=== PATIENT | female | born 1990 | race African-American/Black ===

== ENCOUNTER 2020-12-11 18:09 | Emergency (ER) | payer MEDICAID ==
[~2020-12-11] VITALS: Ht 167.6 cm; Wt 55.0 kg
[2020-12-11 21:20] LABS: CHLORIDE 110 mEq/L (98-107)
[2020-12-11 21:27] LABS: HCG SCREEN NEGATIVE
[2020-12-11 21:29] LABS: HEMATOCRIT. 44.2 % (36.0-48.0); HEMOGLOBIN. 14.5 g/dL (12.0-16.0); MEAN CORPUSCULAR HEMOGLOBIN 29.9 pg (28.0-32.0); MEAN CORPUSCULAR VOLUME 91.6 fL (81.0-99.0); MEAN PLATELET VOLUME 9.4 fl (7.4-10.4); PLATELET 170 x1000/uL (130-400); RED BLOOD CELL COUNT 4.83 mill/uL (4.2-5.4); RED CELL DISTRIBUTION WIDTH 16.2 % (11.6-14.6)
[2020-12-11 21:52] LABS: ETHANOL BLOOD 489 mg/dL
[2020-12-11 22:01] LABS: PLATELET ESTIMATE NORMAL
[2020-12-11] MEDS ORDERED: KCL 20MEQ/100ML PREMIX 100 ML IV ONE (22:30)
[2020-12-11] MEDS ORDERED: IBUPROFEN 400MG TABLET PO ONE (23:15)
[2020-12-12] MEDS ORDERED: HALOPERIDOL LACTATE 5MG/ML VIAL IM ONE (01:45)
[2020-12-12] MEDS ORDERED: IBUPROFEN 400MG TABLET PO ONE (03:30)
[2020-12-12 07:30] VITALS: BP 116/79
== END 2020-12-12 09:04 | disposition home or self-care (01) ==
LOC: ER 18:09
DX: F10.129 Alcohol abuse with intoxication, unspecified (principal); Y90.8 Blood alcohol level of 240 mg/100 ml or more; E87.6 Hypokalemia
CPT/HCPCS: 70450; 71045; 76705; 80053; 80307; 80320; 84703; 85025; 93005; 96360; 96361; 96372; 99285; J1630; J3480; G0480

== ENCOUNTER 2021-07-17 12:51 | Inpatient (IN) | payer MEDICAID, OTHER ==
[~2021-07-17] VITALS: Ht 162.6 cm; Wt 67.8 kg
[2021-07-17 15:09] LABS: HEMATOCRIT. 39.5 % (36.0-48.0); HEMOGLOBIN. 12.7 g/dL (12.0-16.0); MEAN CORPUSCULAR HEMOGLOBIN 28.4 pg (28.0-32.0); MEAN PLATELET VOLUME 7.8 fl (7.4-10.4); PLATELET 288 x1000/uL (130-400); RED BLOOD CELL COUNT 4.49 mill/uL (4.2-5.4); RED CELL DISTRIBUTION WIDTH 14.1 % (11.6-14.6)
[2021-07-17 15:30] LABS: HCG SCREEN NEGATIVE
[2021-07-17 16:21] LABS: CHLORIDE 83 mEq/L (98-107)
[2021-07-17 16:26] LABS: ETHANOL BLOOD 109 mg/dL
[2021-07-17] MEDS ORDERED: KCL 20MEQ/100ML PREMIX 100 ML IV NR (17:15)
[2021-07-17] MEDS ORDERED: NALOXONE HCL 0.4MG/ML VIAL IV PRN (17:15)
[2021-07-17] MEDS ORDERED: HYDROCODONE/ACETAMINOPHEN 5/325MG TABLET PO NR (17:15)
[2021-07-17 20:27] LABS: CLARITY URINE CLEAR (CLEAR); COLOR URINE YELLOW (YELLOW); KETONES URINE 1+ (NEGATIVE); LEUKOCYTE ESTERASE URINE NEGATIVE (NEGATIVE); NITRITE URINE NEGATIVE (NEGATIVE); OCCULT BLOOD URINE 1+ (NEGATIVE); PH URINE 5.5 (4.5-8.0); PROTEIN URINE 1+ (NEGATIVE); SPECIFIC GRAVITY URINE 1.018 (1.005-1.030); UROBILINOGEN URINE 0.2 E.U./dL (0.2-1.0)
[2021-07-17] MEDS ORDERED: DEXTROSE 50% WATER 50ML SYRINGE IV NR (20:30)
[2021-07-17] MEDS ORDERED: MORPHINE SULFATE 2 MG/ML CPJ (NOT FOR IM USE) IV ONE (20:45)
[2021-07-17 20:47] LABS: *AMPHETAMINES SCREEN URINE NEGATIVE (NEGATIVE); *BARBITURATES SCREEN URINE NEGATIVE (NEGATIVE); *BENZODIAZEPINES SCREEN URINE NEGATIVE (NEGATIVE); *COCAINE SCREEN URINE NEGATIVE (NEGATIVE); CANNABINOID URINE SCREEN NEGATIVE (NEGATIVE); METHADONE URINE SCREEN NEGATIVE (NEGATIVE); OPIATES URINE SCREEN NEGATIVE (NEGATIVE); PHENCYCLIDINE URINE SCREEN NEGATIVE (NEGATIVE)
[2021-07-17 21:19] LABS: PLATELET ESTIMATE NORMAL
[2021-07-17] MEDS ORDERED: ONDANSETRON HCL 4MG/2ML INJ IV ONE (23:30)
[2021-07-18] MEDS: ACETAMINOPHEN 325MG TABLET PO PRN ×2 (02:40→09:09)
[2021-07-18 04:22] VITALS: BP 125/77
[2021-07-18] MEDS ORDERED: CLONIDINE 0.1MG TABLET PO PRN (04:45)
[2021-07-18] MEDS ORDERED: DOCUSATE SODIUM 100MG CAPSULE PO PRN (04:45)
[2021-07-18] MEDS ORDERED: MAGNESIUM/ALUMINUM HYDROXIDE/SIMETHICONE 30ML UDC PO PRN (04:45)
[2021-07-18] MEDS ORDERED: ACETAMINOPHEN 325MG TABLET PO PRN (04:45)
[2021-07-18 07:56] LABS: HEMATOCRIT. 37.2 % (36.0-48.0); MEAN CORPUSCULAR HEMOGLOBIN 28.1 pg (28.0-32.0); MEAN CORPUSCULAR VOLUME 87.2 fL (81.0-99.0); PLATELET 283 x1000/uL (130-400); RED BLOOD CELL COUNT 4.27 mill/uL (4.2-5.4)
[2021-07-18 08:00] VITALS: BP 141/85
[2021-07-18 08:05] LABS: CHLORIDE 106 mEq/L (98-107)
[2021-07-18] MEDS: GABAPENTIN 300MG CAPSULE PO SCH ×3 (09:06→16:17)
[2021-07-18] MEDS: ONDANSETRON HCL 4MG/2ML INJ IV PRN ×2 (09:07→16:17)
[2021-07-18] MEDS: ENOXAPARIN 40MG/0.4ML SYR SUBCUT SCH (09:11)
[2021-07-18] MEDS ORDERED: DEXT 5%/0.9% NACL KCL 20MEQ/L 1,000 ML IV SCH (09:30)
[2021-07-18] MEDS: BENAZEPRIL 5MG TABLET PO SCH (10:12)
[2021-07-18 10:42] LABS: ATYPICAL LYMPHOCYTES 1
[2021-07-18 10:50] LABS: PLATELET ESTIMATE NORMAL
[2021-07-18 12:00] VITALS: BP 154/86
[2021-07-18] MEDS ORDERED: POTASSIUM CHLORIDE 20MEQ TABLET SR PO NR (13:30)
[2021-07-18] MEDS ORDERED: NALOXONE HCL 0.4MG/ML VIAL IV PRN (13:45)
[2021-07-18] MEDS: HYDROMORPHONE HCL 2MG TABLET PO PRN (14:37)
[2021-07-18] MEDS: LEVETIRACETAM 500MG TABLET PO SCH ×2 (14:37→20:53)
[2021-07-18] MEDS: HYDROCORTISONE SOD SUCCINATE 100 MG/2 ML VIAL IV SCH ×2 (14:38→22:27)
[2021-07-18] MEDS: FLUOXETINE HCL 20MG CAPSULE PO SCH (14:39)
[2021-07-18 16:00] VITALS: BP 159/59
[2021-07-18] MEDS ORDERED: DIPHENHYDRAMINE 50MG CAPSULE PO PRN (18:30)
[2021-07-18 20:00] VITALS: BP 126/87
[2021-07-18] MEDS: QUETIAPINE FUMARATE 50MG TABLET PO SCH (20:54)
[2021-07-19] VITALS (7 sets, daily range): BP systolic 111–143; BP diastolic 63–94
[2021-07-19] MEDS: HYDROCORTISONE SOD SUCCINATE 100 MG/2 ML VIAL IV SCH ×2 (06:15→14:16)
[2021-07-19 08:16] LABS: CHLORIDE 108 mEq/L (98-107)
[2021-07-19] MEDS: FLUOXETINE HCL 20MG CAPSULE PO SCH (09:37)
[2021-07-19] MEDS: GABAPENTIN 300MG CAPSULE PO SCH ×3 (09:37→17:44)
[2021-07-19] MEDS: BENAZEPRIL 5MG TABLET PO SCH (09:37)
[2021-07-19] MEDS: LEVETIRACETAM 500MG TABLET PO SCH ×2 (09:37→21:04)
[2021-07-19] MEDS: ENOXAPARIN 40MG/0.4ML SYR SUBCUT SCH (09:39)
[2021-07-19] MEDS: HYDROMORPHONE HCL 2MG TABLET PO PRN ×2 (09:39→17:45)
[2021-07-19] MEDS: QUETIAPINE FUMARATE 50MG TABLET PO SCH (21:04)
== END 2021-07-19 21:30 | disposition home or self-care (01) | DRG 53 ==
LOC: ER 12:51 → 6EST 23:29 → ENRESERV 07-18 02:24
PROVIDERS: ADMIT Internal Medicine; ATTEND Internal Medicine
DX: R56.9 Unspecified convulsions (principal); G93.41 Metabolic encephalopathy; E87.0 Hyperosmolality and hypernatremia; E83.51 Hypocalcemia; M32.9 Systemic lupus erythematosus, unspecified; E87.6 Hypokalemia; E16.2 Hypoglycemia, unspecified; F32.A Depression, unspecified; F41.9 Anxiety disorder, unspecified; F10.10 Alcohol abuse, uncomplicated; M79.604 Pain in right leg; Z91.09 Other allergy status, other than to drugs and biological substances; Y92.410 Unspecified street and highway as the place of occurrence of the external cause; W19.XXXA Unspecified fall, initial encounter
CPT/HCPCS: 36415; 70551; 73590; 76700; 80048; 80053; 80305; 80320; 81003; 82330; 82533; 82962; 83735; 84484; 84703; 85025; 86038; 93005; 95816; 99285; J1650; J1720; J2270; J2405; J3480; Q0163; G0480

== ENCOUNTER 2021-07-24 17:00 | Emergency (ER) | payer OTHER ==
[~2021-07-24] VITALS: Ht 165.1 cm; Wt 45.0 kg
[2021-07-24 18:57] LABS: CLARITY URINE CLEAR (CLEAR); COLOR URINE YELLOW (YELLOW); KETONES URINE NEGATIVE (NEGATIVE); LEUKOCYTE ESTERASE URINE NEGATIVE (NEGATIVE); NITRITE URINE NEGATIVE (NEGATIVE); OCCULT BLOOD URINE NEGATIVE (NEGATIVE); PH URINE 7.5 (4.5-8.0); PROTEIN URINE 2+ (NEGATIVE); SPECIFIC GRAVITY URINE 1.018 (1.005-1.030)
[2021-07-24 19:19] LABS: *AMPHETAMINES SCREEN URINE NEGATIVE (NEGATIVE); *BARBITURATES SCREEN URINE NEGATIVE (NEGATIVE); *BENZODIAZEPINES SCREEN URINE NEGATIVE (NEGATIVE); *COCAINE SCREEN URINE NEGATIVE (NEGATIVE); CANNABINOID URINE SCREEN NEGATIVE (NEGATIVE); METHADONE URINE SCREEN NEGATIVE (NEGATIVE); OPIATES URINE SCREEN NEGATIVE (NEGATIVE); PHENCYCLIDINE URINE SCREEN NEGATIVE (NEGATIVE)
[2021-07-24 19:39] LABS: BASOPHILS % 1.6 % (0.0-2.0); EOSINOPHILS % 0.5 % (0.0-5.0); HEMATOCRIT. 38.9 % (36.0-48.0); HEMOGLOBIN. 12.8 g/dL (12.0-16.0); LYMPHOCYTES % 39.5 % (20.0-50.0); MEAN CORPUSCULAR HEMOGLOBIN 28.8 pg (28.0-32.0); MEAN CORPUSCULAR VOLUME 87.4 fL (81.0-99.0); MEAN PLATELET VOLUME 8.3 fl (7.4-10.4); NEUTROPHILS % 52.4 % (40.0-76.0); PLATELET 343 x1000/uL (130-400); RED BLOOD CELL COUNT 4.46 mill/uL (4.2-5.4); RED CELL DISTRIBUTION WIDTH 14.2 % (11.6-14.6)
[2021-07-24 19:46] LABS: HCG SCREEN NEGATIVE
[2021-07-24 19:47] LABS: CHLORIDE 111 mEq/L (98-107)
[2021-07-24 20:31] LABS: ETHANOL BLOOD 365 mg/dL
[2021-07-24 22:00] VITALS: BP 121/82
== END 2021-07-25 01:44 | disposition home or self-care (01) ==
LOC: ER 17:00
DX: R11.0 Nausea (principal); J45.909 Unspecified asthma, uncomplicated
CPT/HCPCS: 36415; 80053; 80305; 80320; 81003; 82542; 84703; 85025; 99283; G0480

== ENCOUNTER 2021-07-26 23:31 | Emergency (ER) | payer OTHER ==
[~2021-07-26] VITALS: Ht 162.6 cm; Wt 61.0 kg
[2021-07-27 00:46] LABS: HEMATOCRIT. 41.6 % (36.0-48.0); HEMOGLOBIN. 13.3 g/dL (12.0-16.0); MEAN CORPUSCULAR HEMOGLOBIN 28.5 pg (28.0-32.0); MEAN CORPUSCULAR VOLUME 88.8 fL (81.0-99.0); MEAN PLATELET VOLUME 8.2 fl (7.4-10.4); PLATELET 342 x1000/uL (130-400); RED BLOOD CELL COUNT 4.68 mill/uL (4.2-5.4); RED CELL DISTRIBUTION WIDTH 14.5 % (11.6-14.6)
[2021-07-27 00:59] LABS: CHLORIDE 112 mEq/L (98-107)
[2021-07-27 02:03] LABS: CLARITY URINE CLEAR (CLEAR); COLOR URINE YELLOW (YELLOW); KETONES URINE NEGATIVE (NEGATIVE); LEUKOCYTE ESTERASE URINE NEGATIVE (NEGATIVE); NITRITE URINE NEGATIVE (NEGATIVE); OCCULT BLOOD URINE NEGATIVE (NEGATIVE); PH URINE 5.5 (4.5-8.0); PROTEIN URINE 2+ (NEGATIVE); SPECIFIC GRAVITY URINE 1.018 (1.005-1.030); UROBILINOGEN URINE 0.2 E.U./dL (0.2-1.0)
[2021-07-27 02:26] LABS: *AMPHETAMINES SCREEN URINE NEGATIVE (NEGATIVE); *BARBITURATES SCREEN URINE NEGATIVE (NEGATIVE); *BENZODIAZEPINES SCREEN URINE NEGATIVE (NEGATIVE); *COCAINE SCREEN URINE NEGATIVE (NEGATIVE); CANNABINOID URINE SCREEN NEGATIVE (NEGATIVE); METHADONE URINE SCREEN NEGATIVE (NEGATIVE); OPIATES URINE SCREEN NEGATIVE (NEGATIVE); PHENCYCLIDINE URINE SCREEN NEGATIVE (NEGATIVE)
[2021-07-27 03:27] LABS: ETHANOL BLOOD 355 mg/dL
[2021-07-27] MEDS ORDERED: IBUPROFEN 600MG TABLET PO ONE (03:30)
[2021-07-27 05:51] VITALS: BP 109/66
[2021-07-27 07:34] LABS: PLATELET ESTIMATE NORMAL
== END 2021-07-27 05:52 | disposition home or self-care (01) ==
LOC: ER 23:31
DX: F10.229 Alcohol dependence with intoxication, unspecified (principal); Y90.8 Blood alcohol level of 240 mg/100 ml or more; M79.18 Myalgia, other site
CPT/HCPCS: 36415; 80053; 80305; 80320; 81003; 85025; 99285; G0480

== ENCOUNTER 2021-07-29 16:20 | Emergency (ER) | payer OTHER ==
[~2021-07-29] VITALS: Ht 172.7 cm; Wt 73.0 kg
[2021-07-29 18:18] LABS: EOSINOPHILS % 0.3 % (0.0-5.0); HEMATOCRIT. 33.7 % (36.0-48.0); HEMOGLOBIN. 11.1 g/dL (12.0-16.0); LYMPHOCYTES % 41.9 % (20.0-50.0); MEAN CORPUSCULAR HEMOGLOBIN 28.8 pg (28.0-32.0); MEAN CORPUSCULAR VOLUME 87.6 fL (81.0-99.0); MEAN PLATELET VOLUME 8.2 fl (7.4-10.4); MONOCYTES % 6.4 % (2.0-8.0); NEUTROPHILS % 49.4 % (40.0-76.0); PLATELET 292 x1000/uL (130-400); RED BLOOD CELL COUNT 3.85 mill/uL (4.2-5.4); RED CELL DISTRIBUTION WIDTH 14.3 % (11.6-14.6)
[2021-07-29 18:24] LABS: CLARITY URINE CLEAR (CLEAR); COLOR URINE YELLOW (YELLOW); KETONES URINE NEGATIVE (NEGATIVE); LEUKOCYTE ESTERASE URINE NEGATIVE (NEGATIVE); NITRITE URINE NEGATIVE (NEGATIVE); OCCULT BLOOD URINE NEGATIVE (NEGATIVE); PH URINE 6.5 (4.5-8.0); PROTEIN URINE NEGATIVE (NEGATIVE); SPECIFIC GRAVITY URINE 1.004 (1.005-1.030); UROBILINOGEN URINE 0.2 E.U./dL (0.2-1.0)
[2021-07-29 18:26] LABS: CHLORIDE 113 mEq/L (98-107)
[2021-07-29 18:38] LABS: HCG SCREEN NEGATIVE
[2021-07-29 18:42] LABS: ETHANOL BLOOD 379 mg/dL
[2021-07-29 18:54] LABS: *AMPHETAMINES SCREEN URINE NEGATIVE (NEGATIVE); *BARBITURATES SCREEN URINE NEGATIVE (NEGATIVE); *BENZODIAZEPINES SCREEN URINE NEGATIVE (NEGATIVE); *COCAINE SCREEN URINE NEGATIVE (NEGATIVE); CANNABINOID URINE SCREEN NEGATIVE (NEGATIVE); METHADONE URINE SCREEN NEGATIVE (NEGATIVE); OPIATES URINE SCREEN NEGATIVE (NEGATIVE); PHENCYCLIDINE URINE SCREEN NEGATIVE (NEGATIVE)
[2021-07-30] MEDS ORDERED: POTASSIUM CHLORIDE 20MEQ TABLET SR PO ONE (01:00)
[2021-07-30] MEDS ORDERED: POTASSIUM CHLORIDE 20MEQ TABLET SR PO NR (01:15)
[2021-07-30] MEDS ORDERED: ONDANSETRON 4MG ODT PO ONE (10:15)
[2021-07-30] MEDS: FLUOXETINE HCL 20MG CAPSULE PO SCH (12:21)
[2021-07-30] MEDS ORDERED: CHLORDIAZEPOXIDE 25MG CAPSULE PO ONE (15:00)
[2021-07-30] MEDS ORDERED: CHLORDIAZEPOXIDE 25MG CAPSULE PO NR (17:00)
[2021-07-30] MEDS ORDERED: QUETIAPINE FUMARATE 50MG TABLET PO SCH (21:00)
[2021-07-31] MEDS: FLUOXETINE HCL 20MG CAPSULE PO SCH (08:31)
[2021-07-31 10:00] VITALS: BP 134/89
== END 2021-07-31 10:30 | disposition home or self-care (01) ==
LOC: ER 16:20
DX: T51.0X2A Toxic effect of ethanol, intentional self-harm, initial encounter (principal); T42.6X2A Poisoning by other antiepileptic and sedative-hypnotic drugs, intentional self-harm, initial encounter; F33.3 Major depressive disorder, recurrent, severe with psychotic symptoms; F10.229 Alcohol dependence with intoxication, unspecified; Y90.8 Blood alcohol level of 240 mg/100 ml or more; Z20.822 Contact with and (suspected) exposure to COVID-19; Y92.89 Other specified places as the place of occurrence of the external cause; M32.9 Systemic lupus erythematosus, unspecified; Z63.79 Other stressful life events affecting family and household
CPT/HCPCS: 36415; 80053; 80305; 80307; 80320; 80329; 81003; 83690; 84703; 85025; 99285; C9803; U0003; U0005; G0480